=== PATIENT | female | born 1995 | race Caucasian/White ===

== ENCOUNTER 2017-09-06 15:17 | Emergency (ER) | END 2017-09-06 19:56 | disposition home or self-care (01) ==

== ENCOUNTER 2017-10-09 18:51 | Emergency (ER) | END 2017-10-10 01:08 | disposition home or self-care (01) ==

== ENCOUNTER 2018-03-13 19:12 | Emergency (ER) | END 2018-03-13 22:28 | disposition home or self-care (01) ==

== ENCOUNTER 2019-04-15 16:44 | Inpatient (IN) | payer MEDICAID ==
[~2019-04-15] VITALS: Ht 152.4 cm; Wt 63.3 kg
[~2019-04-15 16:44] MED LIST: ALBU18HF INHALATION; AMOX500C2 PO; CETI10CA PO; GUAI5SYR2 PO; HYDR-3498 PO; IBUP-1542 PO; MAGN296S40 PO; MAGN400O19 PO; NAPR-985 PO; NITR-58 PO; OSEL75CA23 PO; PRED20TA PO
[2019-04-15 19:08] VITALS: Ht 152.4 cm; Wt 63.3 kg
[2019-04-15 19:09] VITALS: BP 120/74; PULSE 70; RESP 19
[2019-04-15] MEDS ORDERED: LACTATED RINGER'S 1,000 ML IV PRN (20:09)
[2019-04-15] MEDS: LACTATED RINGER'S 1,000 ML IV SCH (20:26)
[2019-04-15] MEDS ORDERED: LIDOCAINE 1% (MPF) 30 ML INJ INJ PRN (20:30)
[2019-04-15] MEDS ORDERED: OXYTOCIN 30 UNITS/LR 500 ML IV PRN (20:30)
[2019-04-15] MEDS ORDERED: MISOPROSTOL 200 MCG TAB PR PRN (20:30)
[2019-04-15] MEDS ORDERED: METHYLERGONOVINE 0.2 MG INJ IM PRN (20:30)
[2019-04-15] MEDS ORDERED: OXYTOCIN 30 UNITS/LR 500 ML IV SCH ×3 (20:30)
[2019-04-15] MEDS ORDERED: MINERAL OIL LIGHT 10 ML VIAL TOP ONE (20:30)
[2019-04-15] MEDS ORDERED: CARBOPROST 250 MCG INJ IM PRN (20:30)
[2019-04-15] MEDS ORDERED: AMPICILLIN 2 GM/NS (PMX) 100 ML IVPB ONE (21:30)
--- NOTE | 2019-04-15 23:04 | PREAC ---
Date/Time of Note Date/Time of Note DATE: 04/15/19 TIME: 23:03 Anesthesia Eval and Record Evaluation Time Pre-Procedure Interview DATE: 04/15/19 TIME: 23:03 Age 23 Sex female NPO: Other (n/a) Preoperative diagnosis intrauterine Planned procedure labor epidural Past Medical History Past Medical History: Includes : : (3), Para: (1) Surgery & Anesthesia Issues No known issue Meds Anticoagulation: No Beta Bri within 24 hr: No Reason Beta Bri not given: Pt. not on B-Bri Active Scripts Magnesium Citrate* (Magnesium Citrate*) 296 Ml Solution, 180 ML PO ONCE for 3 Days, #3 BOTTLE Prov:KATIA OVERTON MD 03/13/18 Magnesium Hydroxide* (Milk Of Magnesia*) 400 Mg/5 Ml Oral.susp, 30 ML PO BID for 3 Days, ML Prov:KATIA OVERTON MD 03/13/18 Cetirizine Hcl* (Zyrtec*) 10 Mg Capsule, 10 MG PO DAILY, #14 TAB.CHEW Prov:JOSEF ADAIR PA-C 10/10/17 Naproxen* (Naprosyn*) 500 Mg Tablet, 500 MG PO BID PRN for PAIN AND/OR INFLAMMATION, #30 TAB Prov:JOSEF ADAIR PA-C 10/10/17 Guaifenesin-Dextromethorphan* (Robitussin* DM) 100MG/10MG/5ML Syrup, 10 ML PO Q6H PRN for COUGH for 5 Days, ML Prov:JOSEF ADAIR PA-C 10/10/17 Prednisone* (Prednisone*) 20 Mg Tab, 40 MG PO DAILY for 4 Days, TAB Prov:JOSEF ADAIR PA-C 10/10/17 Albuterol Sulfate* (Ventolin HFA*) 18 Gm Hfa.aer.ad, 2 PUFF INHALATION Q4H, #1 INHALER Prov:JOSEF ADAIR PA-C 10/10/17 Amoxicillin* (Amoxicillin*) 500 Mg Cap, 500 MG PO TID for 7 Days, CAP Prov:RASHAD LOVE MD 09/06/17 Ibuprofen* (Motrin*) 600 Mg Tab, 600 MG PO Q6, #20 TAB Prov:RASHAD LOVE MD 09/06/17 Oseltamivir Phosphate* (Tamiflu*) 75 Mg Capsule, 75 MG PO BID for 5 Days, CAP Prov:RASHAD LOVE MD 09/06/17 Ibuprofen* (Motrin*) 600 Mg Tab, 600 MG PO Q6, #30 TAB Prov:MANAGUELOD,BALDEMAR P [employer] 05/25/16 Nitrofurantoin Monohyd Macrocr* (Macrobid*) 100 Mg Capsr, 100 MG PO HS for 7 Days, CAP Prov:MANAGUELOD,BALDEMAR P [employer] 05/25/16 Hydrocodone Bit-Acetaminophen* ([place]*) 5-325 Mg Tab, 1 TAB PO Q6 PRN for PAIN, #15 TAB Prov:MAGDIEL DELUNA PA-C 08/12/15 Ibuprofen* (Motrin*) 600 Mg Tab, 600 MG PO Q6H PRN for PAIN AND OR ELEVATED TEMP, #30 Prov:MAGDIEL DELUNA PA-C 08/12/15 Current Medications Lactated Ringer's 1,000 ml @ 125 mls/hr Q8H IV Last administered on 04/15/19at 20:26; Admin Dose 125 MLS/HR; Start 04/15/19 at 20:09 Lidocaine (Xylocaine 1% (Mpf)) 30 ml ONCE PRN INJ .EPISIOTOMY; Start 04/15/19 at 20:30 Oxytocin/Lactated Ringer's 500 ml @ 500 mls/hr ONCE POST IV ; Start 04/15/19 at 20:30 Oxytocin/Lactated Ringer's 500 ml @ 125 mls/hr POST IV ; Start 04/15/19 at 20:30 Lactated Ringer's 1,000 ml @ 2,000 mls/hr Q30M PRN IV .ANESTHESIA Last administered on 04/15/19at 23:01; Admin Dose 2,000 MLS/HR; Start 04/15/19 at 20:09 Oxytocin/Lactated Ringer's 500 ml @ 0 mls/hr ONCE PRN IV .VAGINAL BLEEDING; Start 04/15/19 at 20:30 Methylergonovine Maleate (Methergine) 0.2 mg ONCE PRN IM .VAGINAL BLEEDING; Start 04/15/19 at 20:30 Carboprost Tromethamine (Hemabate) 250 mcg ONCE PRN IM .VAGINAL BLEEDING; Start 04/15/19 at 20:30 Misoprostol (Cytotec) 1,000 mcg ONCE PRN IA .VAGINAL BLEEDING; Start 04/15/19 at 20:30 Oxytocin/Lactated Ringer's 500 ml @ 0 mls/hr FOR AUGMENTATION IV Last administered on 04/15/19at 22:45; Admin Dose 1 MLS/HR; Start 04/15/19 at 20:30 Ampicillin 50 ml @ 100 mls/hr Q4 IVPB ; Start 04/16/19 at 01:00 Meds reviewed: Yes Allergies Coded Allergies: No Known Allergy (Unverified , 03/13/18) Allergies Reviewed: Yes Labs/Studies Labs Reviewed: Reviewed by anesthesiologist Result Diagram: 04/15/192024 Laboratory Tests 04/15/19 20:25 Blood Bank Test 04/15/19 20:25 Antibody Screen NEGATIVE Blood Type A POSITIVE Rh Immune Globulin Candidate NO test: N/A Pre-procedure Exam Last vitals Vital Signs Date Temp Pulse Resp B/P (MAP) Pulse Ox O2 O2 Flow FiO2 Time Delivery Rate 04/15/19 98.2 70 19 120/74 Room Air 19:09 (89) Airway: Adequate mouth opening, Adequate thyromental dist Mallampati: Mallampati II Teeth: Normal Lung: Normal Heart: Normal ASA Physical Status ASA physical status: 2 Emergency: None Planned Anesthetic Neuraxial: Epidural Planned Pain Management Epidural Pre-operative Attestations Prior to commencing anesthesia and surgery, the patient was re-evaluated, there was verification of: *The patient's identity *The results of appropriate recent lab work and preoperative vital signs *The above evaluation not changing prior to induction *Anesthetic plan, risk benefits, alternative and complications discussed with patient/family; questions answered; patient/family understands, accepts and wishes to proceed. PHILIP DE LA TORRE MD Apr 15, 2019 23:04
[2019-04-15] MEDS ORDERED: FENTAnyl 2MCG/ML-ROPIV 0.2% 100 ML ONE (23:10)
[2019-04-15] MEDS ORDERED: ONDANSETRON 4 MG INJ IV PRN (23:30)
[2019-04-15] MEDS ORDERED: DIPHENHYDRAMINE 50 MG INJ IV PRN (23:30)
[2019-04-15] MEDS ORDERED: FENTAnyl 2MCG/ML-ROPIV 0.2% 100 ML BAG EPI SCH (23:30)
[2019-04-15] MEDS ORDERED: NALOXONE (0.4 MG/ML) INJ IV PRN (23:30)
--- NOTE | 2019-04-16 00:46 | HP ---
Date/Time of Note Date/Time of Note DATE: 04/16/19 TIME: 00:41 OB - History Hx of Present Free Text/Dictation 04/16/1905/27/41 Chief Complaint: rupture of membrane Estimated Due Date: Apr 29, 2019 : 3 Para: 1 Spontaneous : 1 Therapeutic : 0 Care: Good Care Ultrasounds: Normal mid trimester US Obstetrical Complications: None Medical Complications: None Past Family/Social History * Past Medical, Surgical, Family and Obstetric Histories reviewed from chart. Blood Type: A+ Rubella: immune RPR/VDRL: Negative GBS Status: Negative HBsAG: Negative OB Admission Exam Vital Signs Vital Signs Vital Signs Date Temp Pulse Resp B/P (MAP) Pulse Ox O2 O2 Flow FiO2 Time Delivery Rate 04/15/19 98.2 70 19 120/74 Room Air 19:09 (89) Physical Exam HEENT: WNL Heart: Rhythm Normal Lungs: Clear, Equal Abdomen: WNL Extremities: Normal Reflexes: Normal Cervical Dilatation: 1cm Effacement: 50% Station: -2 Membranes: Ruptured Amniotic Fluid: Clear Heart Rate: 150's Accelerations: Accelerations Present Decelerations: No Decelerations Varibility: Moderate Contractions on Admission: < 5 Minutes Apart Intensity: Moderate Last 72 hours Lab Results CBC & BMP 04/15/19 20:25 OB Assessment/Plan Reason for admission: rupture of membranes Other Assessment: IUP 38w in early labor Plan: Expectant Management, Other (pitocin augmentation) NICK GARCIA MD Apr 16, 2019 00:46
--- NOTE | 2019-04-16 01:14 | PAC ---
Date/Time of Note Date/Time of Note DATE: 04/16/19 TIME: 01:13 Post-Anesthesia Notes Post-Anesthesia Note Last documented vital signs Vital Signs Date Temp Pulse Resp B/P (MAP) Pulse Ox O2 O2 Flow FiO2 Time Delivery Rate 04/15/19 98.2 70 19 120/74 Room Air 19:09 (89) Activity: WNL Respiratory function: WNL Cardiovascular function: WNL Mental status: Baseline Pain reasonably controlled: Yes Hydration appropriate: Yes Nausea/Vomiting absent: Yes Comments BP: 110/63 HR: 71 RR: 15 T: 98.2 SaO2: 100% PHILIP DE LA TORRE MD Apr 16, 2019 01:14
[2019-04-16] MEDS: AMPICILLIN 1 GM/NS (PMX) 50 ML IVPB SCH ×2 (02:07→06:14)
[2019-04-16] MEDS: LACTATED RINGER'S 1,000 ML IV SCH ×2 (02:56→06:13)
[2019-04-16] MEDS ORDERED: MINERAL OIL LIGHT 10 ML VIAL ONE (06:26)
--- NOTE | 2019-04-16 09:43 | LDN ---
Date/Time of Note Date/Time of Note DATE: 04/16/19 TIME: 09:39 Delivery Summary of normal male Weeks of Gestation 38w1d Placenta Delivered: Spontaneously, Intact & Complete Meconium: none Episiotomy: No Perineal laceration: 0 Anesthesia type: Epidural Estimated blood loss: 100 Sponge & Needle done & correct: Yes All needle counts correct: Yes Any foreign bodies felt in the: No Infant Delivery Information Sex Sex: male Apgars 1 Minute: 8 5 Minute: 9 Suctioning Nose & mouth suctioned at sergey: Yes Delee suction performed: Yes Umbilical Cord Umbilical cord with: 3 Vessels Cord presentations: no nuchal cord Cord Blood was obtained: Yes Mother & Baby Disposition Disposition Mom & Baby to Maternity; Good: Yes Mom transferred to: Other Baby to NICU: No () NICK GARCIA MD Apr 16, 2019 09:43
[2019-04-16 10:05] VITALS: BP 118/69; PULSE 64; RESP 16
[2019-04-16] MEDS ORDERED: OXYTOCIN 30 UNITS/LR 500 ML IV SCH (10:23)
[2019-04-16] MEDS ORDERED: LACTATED RINGER'S 500 ML IV SCH (10:23)
[2019-04-16] MEDS ORDERED: OXYTOCIN 30 UNITS/LR 500 ML IV PRN (10:30)
[2019-04-16] MEDS ORDERED: METHYLERGONOVINE 0.2 MG INJ IM PRN (10:30)
[2019-04-16] MEDS ORDERED: WITCH HAZEL/GLYCERIN PAD PR PRN (10:30)
[2019-04-16] MEDS ORDERED: CARBOPROST 250 MCG INJ IM PRN (10:30)
[2019-04-16] MEDS ORDERED: METHYLERGONOVINE 0.2 MG TAB PO PRN (10:30)
[2019-04-16] MEDS ORDERED: OXYCODONE/ASPIRIN (4.88/325) TAB PO PRN ×2 (10:30)
[2019-04-16] MEDS ORDERED: ZOLPIDEM 5 MG TAB PO PRN (10:30)
[2019-04-16] MEDS ORDERED: BENZOCAINE 20% 56 ML SPRAY TOP PRN (10:30)
[2019-04-16] MEDS ORDERED: MISOPROSTOL 200 MCG TAB PR PRN (10:30)
[2019-04-16] MEDS ORDERED: LANOLIN HPA 1 PKT TOP PRN (10:30)
[2019-04-16] MEDS: IBUPROFEN 600 MG TAB PO SCH ×2 (12:02→18:07)
[2019-04-16 16:00] VITALS: BP 106/69; PULSE 65; RESP 16
[2019-04-16 20:15] VITALS: BP 113/74; PULSE 72; RESP 18
[2019-04-16] MEDS: SENNA/DOCUSATE NA (8.6MG/50MG) TAB PO SCH (21:33)
[2019-04-17] MEDS: IBUPROFEN 600 MG TAB PO SCH ×5 (00:26→23:45)
[2019-04-17 03:55] VITALS: BP 102/65; PULSE 61; RESP 18
[2019-04-17 08:24] VITALS: BP 105/64; PULSE 67; RESP 17
[2019-04-17] MEDS: SENNA/DOCUSATE NA (8.6MG/50MG) TAB PO SCH ×2 (11:14→21:21)
[2019-04-17 15:32] VITALS: BP 100/64; PULSE 64; RESP 18
--- NOTE | 2019-04-17 19:54 | QN ---
Documentation Comment day #1 Status post Patient stable and afebrile Vital signs stable VS - Last 72 Hours, by Label Date Temp Pulse Resp B/P (MAP) Pulse Ox O2 O2 Flow FiO2 Time Delivery Rate 04/17/19 98.4 64 18 100/64 Room Air 15:32 (76) 04/17/19 98.3 67 17 105/64 Room Air 08:24 (78) 04/17/19 98.6 61 18 102/65 Room Air 03:55 (77) 04/16/19 98.2 72 18 113/74 Room Air 20:15 (87) 04/16/19 98.0 65 16 106/69 Room Air 16:00 (81) 04/16/19 98.3 64 16 118/69 Room Air 10:05 (85) 04/15/19 98.2 70 19 120/74 Room Air 19:09 (89) Hematology - 72 Hrs Test 04/15/19 20:25 04/17/19 04:41 Hematocrit 38.8 % (37.0-47.0) 34.9 % (37.0-47.0) L Hemoglobin 13.2 g/dl (12.0-16.0) 11.4 g/dl (12.0-16.0) L Mean Corpuscular 32.6 pg (29.0-33.0) 32.1 pg (29.0-33.0) Hemoglobin Mean Corpuscular 34.0 g/dl (32.0-37.0) 32.7 g/dl (32.0-37.0) Hemoglobin Concent Mean Corpuscular Volume 95.8 fl (82.0-101.0) 98.3 fl (82.0-101.0) Mean Platelet Volume 12.4 fl (7.4-10.4) H 12.5 fl (7.4-10.4) H Platelet Count 178 10^3/UL (140-415) # 148 10^3/UL (140-415) Red Blood Count 4.05 10^6/ul (4.20-5.40) 3.55 10^6/ul (4.20-5.40) L L Red Cell Distribution 12.4 % (11.5-14.5) 12.5 % (11.5-14.5) Width White Blood Count 6.8 10^3/ul (4.8-10.8) # 8.2 10^3/ul (4.8-10.8) # Abdomen soft, fundus firm Perineum intact Extremities nontender Assessment and plan Patient stable and doing well Continue with routine care NATALIIA LOREDO MD Apr 17, 2019 19:54
[2019-04-17 20:30] VITALS: BP 103/65; PULSE 83; RESP 17
[2019-04-18 04:00] VITALS: BP 101/59; PULSE 71; RESP 16
[2019-04-18] MEDS: IBUPROFEN 600 MG TAB PO SCH ×2 (07:00→11:35)
[2019-04-18 08:00] VITALS: BP 96/54; PULSE 63; RESP 17
[2019-04-18] MEDS ORDERED: DIPHTH/TET/ACEL PERTUSS (ADULT) 0.5 ML VIAL IM* ONE (09:00)
[2019-04-18] MEDS: SENNA/DOCUSATE NA (8.6MG/50MG) TAB PO SCH (11:35)
--- NOTE | 2019-04-18 13:35 | QN ---
Documentation Comment PPD#2 is stable afebrile tolerates diet No VB +BM +voids VS stable Gen NAD Abd soft NT ND Genitalia No blood at Perineum --->Discharge Home --->precautions discussed ALANNA WETZEL M.D. Apr 18, 2019 13:35
--- NOTE | 2019-04-19 14:43 | DELSUM ---
Delivery Summary A-C Datetime Report Generated by CPN: 04/19/2019 14:43 DELIVERY PERSONNEL Hospice Social Worker: [place], May MATERNAL INFORMATION Delivery Anesthesia: Epidural Medications in Delivery: pitocin 30 units in LR Delivery QBL (ml): 100 Placenta Cultured: No Maternal Complications: None LABOR SUMMARY EDC: 04/29/2019 00:00 No. Babies in Womb: 1 Attempted: No Labor Anesthesia: Epidural LABOR INFORMATION Reason for Induction: Not Applicable Onset of Labor: 04/16/2019 01:09 Complete Dilatation: 04/16/2019 07:46 Oxytocin: Augmentation Group B Beta Strep: Negative Antibiotics # of Doses: 3 Antibiotics Time of Last Dose: 04/16/2019 06:14 Steroids Given: None Reason Steroids Not Administered: Not Applicable MEMBRANES Membranes Rupture Method: Spontaneous Rupture of Membranes: 04/14/2019 17:00 Length of Rupture (hr): 38.97 Amniotic Fluid Color: Clear Amniotic Fluid Amount: Moderate Amniotic Fluid Odor: None STAGES OF LABOR Stage 1 hr: 6 Stage 1 min: 37 Stage 2 hr: 0 Stage 2 min: 12 Stage 3 hr: 0 Stage 3 min: 2 Total Time in Labor hr: 6 Total Time in Labor min: 51 VAGINAL DELIVERY Episiotomy: None Laceration Type: None Laceration Repair: No Initial Vag Sponge Count: 10 Final Vag Sponge Count: 10 Initial Vag Sharps Count: 1 Final Vag Sharps Count: 1 Sponge Count Correct: Yes; Vaginal Sweep Performed Sharps Count Correct: Yes BABY A INFORMATION Infant Delivery Date/Time: 04/16/2019 07:58 Method of Delivery: Vaginal Born in Route : No : N/A Forceps: N/A Vacuum Extraction: N/A Shoulder Dystocia : N/A SHOULDER DYSTOCIA BABY A Delivery Date/Time: 04/16/2019 07:58 PRESENTATION/POSITION BABY A Presentation: Cephalic Cephalic Presentation: Vertex Vertex Position: Right Occipital Anterior Breech Presentation: N/A PLACENTA INFORMATION BABY A Placenta Delivery Time : 04/16/2019 08:00 Placenta Method of Delivery: Spontaneous Placenta Status: Delivered SCORES BABY A Heart Rate 1 min: >100 bpm Resp Effort 1 min: Good Cry Reflex Irritability 1 min: Cough/Sneeze/Pulls Away Muscle Tone 1 min: Active Motion Color 1 min: Body [place], Extremit Blue Resuscitation Effort 1 min: Tactile Stimulation SCORE 1 MIN: 9 Heart Rate 5 min: >100 bpm Resp Effort 5 min: Good Cry Reflex Irritability 5 min: Cough/Sneeze/Pulls Away Muscle Tone 5 min: Active Motion Color 5 min: Body [place], Extremit Blue Resuscitation Effort 5 min: Tactile Stimulation SCORE 5 MIN: 9 INFORMATION BABY A Gestational Age at Delivery: 38.1 Gestational Status: Early Term- 37- 38.6 Weeks Infant Outcome : Liveborn, with signs of life Condition : Stable Infant Sex: Male IDENTIFICATION/MEDS BABY A ID Band Number: [id number] ID Band Location: Right Leg; Left Arm Sensor Applied: Yes Sensor Number: [id number] Sensor Location : Cord Clamp Vitamin K Given : Not Given Erythromycin Given: Not Given WEIGHT/LENGTH BABY A Birthweight (gm): 3205 Weight (lb): 7 Weight (oz): 1 Length (in): 20.00 Length (cm): 50.80 CORD INFORMATION BABY A No. Cord Vessels: 3 Nuchal Cord : N/A Cord Blood Taken: Yes Infant Suction: Mouth; Nose ASSESSMENT BABY A Infant Complications: None Physical Findings at Delivery: Caput Succedaneum Respirations: Appears Normal Pump House Operator/ALS Called : No Care By: MITZY/SHAVON Transferred To: Remains with Mother
== END 2019-04-18 14:30 | disposition home or self-care (01) | DRG 807 ==
LOC: OBT 16:44 → L-D 17:01 → OBT 20:05 → L-D 21:54 → MS1 04-16 10:11 → PP1 04-17 17:25
PROVIDERS: ADMIT Obstetrics & Gynecology; ATTEND Obstetrics & Gynecology
PROC: 10E0XZZ Delivery of Products of Conception, External Approach (ICD-10-PCS; principal; 2019-04-16)
DX: O80 Encounter for full-term uncomplicated delivery (principal); Z37.0 Single live birth; Z3A.38 38 weeks gestation of pregnancy
CPT/HCPCS: 62322; 76818; 81001; 81003; 84112; 85025; 85610; 85730; 86592; 86850; 86900; 86901; G0463; J0290; J2590; J3010; J7120